=== PATIENT | male | born 1980 | race Hispanic/Latino ===

== ENCOUNTER 2017-05-01 11:34 | Emergency (ER) | payer OTHER ==
[~2017-05-01] VITALS: Ht 167.6 cm; Wt 79.2 kg
[2017-05-01 12:00] VITALS: BP 126/75
[2017-05-01] MEDS ORDERED: LISINOPRIL10 MG PO (13:23)
[2017-05-01] MEDS ORDERED: INDOCIN50 MG PO (13:34)
== END 2017-05-01 14:21 | disposition home or self-care (01) ==
LOC: EME 11:34
DX: M10.9 Gout, unspecified (principal); M25.461 Effusion, right knee
CPT/HCPCS: 73564; 99281; 99283